=== PATIENT | female | born 1970 | race Caucasian/White ===

== ENCOUNTER → 2017-04-19 | Outpatient (CLI) | payer OTHER | LOC: BHSO 11:01 | DX: F41.1 Generalized anxiety disorder (principal) ==

== ENCOUNTER → 2017-07-11 | Outpatient (CLI) | payer OTHER | LOC: BHSO 13:48 | DX: F33.1 Major depressive disorder, recurrent, moderate (principal) ==

== ENCOUNTER → 2017-08-06 | Outpatient (CLI) | payer OTHER | LOC: BHSO 09:07 | DX: F33.1 Major depressive disorder, recurrent, moderate (principal) ==

== ENCOUNTER → 2017-08-14 | Outpatient (CLI) | payer OTHER | LOC: BHSO 08:49 | DX: F33.1 Major depressive disorder, recurrent, moderate (principal) ==

== ENCOUNTER → 2017-08-28 | Outpatient (CLI) | payer OTHER | LOC: BHSO 08:52 | DX: F33.1 Major depressive disorder, recurrent, moderate (principal) ==

== ENCOUNTER → 2017-09-25 | Outpatient (CLI) | payer OTHER | LOC: BHSO 08:47 | DX: F33.1 Major depressive disorder, recurrent, moderate (principal) ==

== ENCOUNTER → 2017-10-18 | Outpatient (CLI) | payer OTHER | LOC: BHSO 10:32 | DX: F31.81 Bipolar II disorder (principal) ==

== ENCOUNTER → 2017-11-12 | Outpatient (CLI) | payer OTHER | LOC: BHSO 09:44 | DX: F31.81 Bipolar II disorder (principal) ==

== ENCOUNTER → 2017-11-23 | Outpatient (CLI) | payer OTHER | LOC: BHSO 13:32 | DX: F31.81 Bipolar II disorder (principal) | CPT/HCPCS: G0463 ==

== ENCOUNTER → 2017-12-04 | Outpatient (CLI) | payer OTHER | LOC: BHSO 08:57 | DX: F31.81 Bipolar II disorder (principal) ==

== ENCOUNTER → 2018-01-09 | Outpatient (CLI) | payer OTHER | LOC: BHSO 08:51 | DX: F31.11 Bipolar disorder, current episode manic without psychotic features, mild (principal) ==

== ENCOUNTER → 2018-01-23 | Outpatient (CLI) | payer OTHER | LOC: BHSO 09:48 | DX: F31.81 Bipolar II disorder (principal) | CPT/HCPCS: G0463 ==

== ENCOUNTER → 2018-02-06 | Outpatient (CLI) | payer OTHER | LOC: BHSO 09:20 | DX: F31.11 Bipolar disorder, current episode manic without psychotic features, mild (principal) ==

== ENCOUNTER → 2018-03-06 | Outpatient (CLI) | payer OTHER | LOC: BHSO 08:51 | DX: F31.81 Bipolar II disorder (principal) ==

== ENCOUNTER → 2018-03-20 | Outpatient (CLI) | payer OTHER | LOC: BHSO 10:01 | DX: F31.11 Bipolar disorder, current episode manic without psychotic features, mild (principal) ==

== ENCOUNTER → 2018-03-29 | Outpatient (CLI) | payer OTHER | LOC: BHSO 08:56 | DX: F31.81 Bipolar II disorder (principal) ==

== ENCOUNTER → 2018-04-15 | Outpatient (CLI) | payer OTHER | LOC: BHSO 13:09 | DX: F31.11 Bipolar disorder, current episode manic without psychotic features, mild (principal) ==

== ENCOUNTER → 2018-05-01 | Outpatient (CLI) | payer OTHER | LOC: BHSO 10:47 | DX: F31.31 Bipolar disorder, current episode depressed, mild (principal) ==

== ENCOUNTER → 2018-05-13 | Outpatient (CLI) | payer OTHER | LOC: BHSO 10:05 | DX: F31.31 Bipolar disorder, current episode depressed, mild (principal) ==

== ENCOUNTER → 2018-05-27 | Outpatient (CLI) | payer OTHER | LOC: BHSO 08:56 | DX: F31.31 Bipolar disorder, current episode depressed, mild (principal) ==

== ENCOUNTER → 2018-06-10 | Outpatient (CLI) | payer OTHER | LOC: BHSO 09:02 | DX: F31.11 Bipolar disorder, current episode manic without psychotic features, mild (principal) ==

== ENCOUNTER → 2018-06-21 | Outpatient (CLI) | payer OTHER | LOC: BHSO 08:19 | DX: F31.11 Bipolar disorder, current episode manic without psychotic features, mild (principal) | CPT/HCPCS: G0463 ==

== ENCOUNTER → 2018-06-24 | Outpatient (CLI) | payer OTHER | LOC: BHSO 09:09 | DX: F31.11 Bipolar disorder, current episode manic without psychotic features, mild (principal) ==

== ENCOUNTER → 2018-07-10 | Outpatient (CLI) | payer OTHER | LOC: BHSO 08:54 | DX: F31.11 Bipolar disorder, current episode manic without psychotic features, mild (principal) ==

== ENCOUNTER → 2018-07-30 | Outpatient (CLI) | payer OTHER | LOC: BHSO 08:57 | DX: F31.11 Bipolar disorder, current episode manic without psychotic features, mild (principal) ==

== ENCOUNTER → 2018-08-13 | Outpatient (CLI) | payer OTHER | LOC: BHSO 09:00 | DX: F31.11 Bipolar disorder, current episode manic without psychotic features, mild (principal) ==

== ENCOUNTER → 2018-08-30 | Outpatient (CLI) | payer OTHER | LOC: BHSO 09:56 | DX: F31.11 Bipolar disorder, current episode manic without psychotic features, mild (principal) ==

== ENCOUNTER → 2018-09-04 | Outpatient (CLI) | payer OTHER | LOC: BHSO 14:25 | DX: F31.81 Bipolar II disorder (principal) | CPT/HCPCS: G0463 ==

== ENCOUNTER → 2018-09-13 | Outpatient (CLI) | payer OTHER | LOC: BHSO 09:51 | DX: F31.11 Bipolar disorder, current episode manic without psychotic features, mild (principal) ==

== ENCOUNTER → 2018-09-27 | Outpatient (CLI) | payer OTHER | LOC: BHSO 08:59 | DX: F31.11 Bipolar disorder, current episode manic without psychotic features, mild (principal) ==

== ENCOUNTER → 2018-10-14 | Outpatient (CLI) | payer OTHER | LOC: BHSO 08:48 | DX: F31.11 Bipolar disorder, current episode manic without psychotic features, mild (principal) ==

== ENCOUNTER → 2018-10-28 | Outpatient (CLI) | payer OTHER | LOC: BHSO 08:54 | DX: F31.11 Bipolar disorder, current episode manic without psychotic features, mild (principal) ==

== ENCOUNTER → 2018-11-08 | Outpatient (CLI) | payer OTHER | LOC: BHSO 09:18 | DX: F31.81 Bipolar II disorder (principal) | CPT/HCPCS: G0463 ==

== ENCOUNTER → 2018-11-13 | Outpatient (CLI) | payer OTHER | LOC: BHSO 13:47 | DX: F31.11 Bipolar disorder, current episode manic without psychotic features, mild (principal) ==

== ENCOUNTER → 2018-12-03 | Outpatient (CLI) | payer OTHER | LOC: BHSO 08:55 | DX: F31.81 Bipolar II disorder (principal) ==

== ENCOUNTER → 2018-12-11 | Outpatient (CLI) | payer OTHER | LOC: BHSO 09:56 | DX: F31.81 Bipolar II disorder (principal) | CPT/HCPCS: G0463 ==

== ENCOUNTER → 2018-12-17 | Outpatient (CLI) | payer OTHER | LOC: BHSO 09:55 | DX: F31.11 Bipolar disorder, current episode manic without psychotic features, mild (principal) ==

== ENCOUNTER → 2019-01-02 | Outpatient (CLI) | payer OTHER | LOC: BHSO 08:58 | DX: F31.11 Bipolar disorder, current episode manic without psychotic features, mild (principal) ==

== ENCOUNTER → 2019-01-16 | Outpatient (CLI) | payer OTHER | LOC: BHSO 08:52 | DX: F31.81 Bipolar II disorder (principal) ==

== ENCOUNTER → 2019-02-17 | Outpatient (CLI) | payer OTHER | LOC: BHSO 09:02 | DX: F31.11 Bipolar disorder, current episode manic without psychotic features, mild (principal) ==

== ENCOUNTER → 2019-04-25 | Outpatient (CLI) | payer OTHER | LOC: BHSO 08:35 | DX: F31.81 Bipolar II disorder (principal) | CPT/HCPCS: G0463 ==

== ENCOUNTER → 2019-05-06 | Outpatient (CLI) | payer OTHER | LOC: BHSO 09:01 | DX: F31.81 Bipolar II disorder (principal) ==

== ENCOUNTER → 2019-05-21 | Outpatient (CLI) | payer OTHER | LOC: BHSO 09:57 | DX: F31.81 Bipolar II disorder (principal) ==

== ENCOUNTER → 2019-06-05 | Outpatient (CLI) | payer OTHER | LOC: BHSO 09:47 | DX: F31.11 Bipolar disorder, current episode manic without psychotic features, mild (principal) ==

== ENCOUNTER → 2019-06-25 | Outpatient (CLI) | payer OTHER | LOC: BHSO 11:00 | DX: F31.11 Bipolar disorder, current episode manic without psychotic features, mild (principal) ==

== ENCOUNTER → 2019-07-07 | Outpatient (CLI) | payer OTHER | LOC: BHSO 11:02 | DX: F31.11 Bipolar disorder, current episode manic without psychotic features, mild (principal) ==

== ENCOUNTER → 2019-08-05 | Outpatient (CLI) | payer OTHER | LOC: BHSO 09:37 | DX: F31.81 Bipolar II disorder (principal) | CPT/HCPCS: G0463 ==

== ENCOUNTER → 2020-02-16 | Outpatient (CLI) | payer SELFPAY | LOC: BHSO 08:42 | DX: F31.81 Bipolar II disorder (principal) | CPT/HCPCS: G0463 ==

== ENCOUNTER → 2020-03-08 | Outpatient (CLI) | payer OTHER | LOC: BHSO 09:01 | DX: F31.11 Bipolar disorder, current episode manic without psychotic features, mild (principal) ==

== ENCOUNTER → 2020-03-22 | Outpatient (CLI) | payer OTHER | LOC: BHSO 08:56 | DX: F31.11 Bipolar disorder, current episode manic without psychotic features, mild (principal) ==

== ENCOUNTER → 2020-04-05 | Outpatient (CLI) | payer OTHER | LOC: BHSO 09:00 | DX: F31.81 Bipolar II disorder (principal) ==

== ENCOUNTER → 2020-04-19 | Outpatient (CLI) | payer OTHER | LOC: BHSO 09:06 | DX: F31.11 Bipolar disorder, current episode manic without psychotic features, mild (principal) ==

== ENCOUNTER → 2020-05-10 | Outpatient (CLI) | payer OTHER | LOC: BHSO 08:53 | DX: F31.11 Bipolar disorder, current episode manic without psychotic features, mild (principal) ==

== ENCOUNTER → 2020-05-17 | Outpatient (CLI) | payer OTHER | LOC: BHSO 10:00 | DX: F31.11 Bipolar disorder, current episode manic without psychotic features, mild (principal) ==

== ENCOUNTER → 2020-05-31 | Outpatient (CLI) | payer OTHER | LOC: BHSO 09:50 | DX: F31.11 Bipolar disorder, current episode manic without psychotic features, mild (principal) ==

== ENCOUNTER → 2020-06-14 | Outpatient (CLI) | payer OTHER | LOC: BHSO 09:56 | DX: F31.11 Bipolar disorder, current episode manic without psychotic features, mild (principal) ==

== ENCOUNTER → 2020-06-29 | Outpatient (CLI) | payer OTHER | LOC: BHSO 09:56 | DX: F31.11 Bipolar disorder, current episode manic without psychotic features, mild (principal) ==